=== PATIENT | male | born 1985 | race Caucasian/White ===

== ENCOUNTER 2017-12-17 17:55 | Emergency (ER) | payer MEDICAID, OTHER ==
[2017-12-17 17:58] VITALS: BP 127/82
[2017-12-17] MEDS ORDERED: LIDOCAINE-MPF 2%, 2ML ONE (18:22)
[2017-12-17] MEDS ORDERED: DIPH,PERTUSS(ACELL),TET VAC/PF 0.5 ML IM-VACC ONE (18:30)
[2017-12-17] MEDS ORDERED: LIDOCAINE 2%, 20ML SQ ONE (18:30)
[2017-12-17] MEDS ORDERED: PLEASE ENTER HEIGHT AND WEIGHT MC SCH (18:30)
[2017-12-17] MEDS ORDERED: BACITRACIN ZINC OINT 500U/GM, 0.9 GM ONE (19:16)
== END 2017-12-17 19:47 | disposition home or self-care (01) ==
LOC: ED 19:36
DX: S61.211A Laceration without foreign body of left index finger without damage to nail, initial encounter (principal); W29.0XXA Contact with powered kitchen appliance, initial encounter; Y93.89 Activity, other specified; Y92.098 Other place in other non-institutional residence as the place of occurrence of the external cause; Y99.8 Other external cause status
CPT/HCPCS: 12042; 99285